=== PATIENT | female | born 1980 | race American Indian/Alaskan Native ===

== ENCOUNTER 2016-08-12 06:21 | Day surgery (SDC) | payer MEDICAID ==
[2016-08-09 11:37] VITALS: BMI 36.8
[2016-08-12 07:10] VITALS: RESP 18; O2SAT 100
--- NOTE | 2016-08-12 07:22 | CP.SDSHP ---
Same Day Surgery H & P - History Proposed Procedure: Laparoscopic Bilateral Tubal Ligation Pre-Op Diagnosis: Multiparity, Sterilization - Allergies Allergies: Allergies No Known Allergies Allergy (Verified 09/17/11 13:13) - Physical Exam Vital Signs: Vital Signs 08/12/16 06:30 Temperature 97.8 F Pulse Rate 57 L Respiratory 18 Rate Blood Pressure 138/87 O2 Sat by Pulse 100 Oximetry Heart: WNL Lungs: WNL GI: WNL - {Optional Preform as Required} FLIGHT PHYSICIAN: WNL Other Pertinent Findings: 35 year old Para6 desires permanent sterilization - Impression Pt. Evaluated Today:Candidate for Anesthesia & Procedure: Yes - Date & Time Date: 08/12/16 Time: 07:21 Short Stay Discharge - Short Stay Discharge Admitting Diagnosis/Reason for Visit: STERILIZATION Disposition: HOME/ ROUTINE
[2016-08-12] MEDS ORDERED: Propofol 10 mg/ml Inj (20 ML) ONE (07:50)
[2016-08-12] MEDS ORDERED: Midazolam 2 MG/2 ML VIAL ONE (07:50)
[2016-08-12] MEDS ORDERED: Rocuronium 10 mg/ml (5 ml) ONE (07:51)
[2016-08-12] MEDS ORDERED: Lidocaine Hydrochloride 5 ML INJ ONE (07:51)
[2016-08-12] MEDS ORDERED: Neostigmine Methylsulfate 3mg/3ml Syringe IV ONE (08:39)
[2016-08-12] MEDS ORDERED: Oxycodone/Acetaminophen 5/325 mg Tab PO PRN (08:48)
[2016-08-12] MEDS: HYDROmorphone 0.5 mg/0.5 ml ISec IVP PRN ×2 (09:15→10:30)
[2016-08-12] MEDS ORDERED: HYDROmorphone 0.5 mg/0.5 ml ISec ONE (09:15)
--- NOTE | 2016-08-12 09:23 | PCM.SURG1 ---
Surgeon's Initial Post Op Note - Surgeon's Notes Surgeon: Basilio Police Guard: None Type of Anesthesia: General Endo Pre-Operative Diagnosis: Multiparity, Sterilization Operative Findings: Normal uterus, ovaries and Fallopian tubes Post-Operative Diagnosis: Multiparity, Sterilization Operation Performed: Laparoscopic Bilateral Tubal Ligation Using Ligasure Specimen/Specimens Removed: None Estimated Blood Loss: EBL {In ML}: 1 Blood Products Given: N/A Drains Used: No Drains Post-Op Condition: Good Date of Surgery/Procedure: 08/12/16 Time of Surgery/Procedure: 08:40
[2016-08-12] MEDS ORDERED: Lactated Ringer's 500 ML IV ONE (10:00)
[2016-08-12 11:44] VITALS: BP 105/70; PULSE 63; TEMP 97.1
--- NOTE | 2016-08-13 09:32 | OP ---
PROCEDURE DATE: 08/12/2016 PREOPERATIVE DIAGNOSES: Multiparity, sterilization. POSTOPERATIVE DIAGNOSES: Multiparity, sterilization. PROCEDURE: Laparoscopic bilateral tubal ligation using the LigaSure. SURGEON: Dr. Richmond. METAL BUGGY OPERATOR: None. ANESTHESIA: General, given by Dr. Lou. FINDINGS: Normal uterus. Normal ovaries. Normal fallopian tubes. DESCRIPTION OF PROCEDURE: Under adequate general anesthesia, the patient was placed in the lithotomy position. The abdomen, perineum, and vagina were prepped and draped in the usual sterile fashion. A Mahoney catheter was inserted into the bladder for continuous bladder drainage. The cervix was then exposed using a bivalved speculum. The anterior lip of the cervix was grasped with a single tooth tenaculum. The uterus was sounded to 8 cm. A HUMI manipulator was then inserted into the uterus and insufflated with air. The speculum and tenaculum were then removed. Attention was turned to the abdomen. A 5 mm incision was made in the umbilicus. A Veress needle was inserted into the abdomen through the incision and pneumoperitoneum was created. A 5 mm trocar and cannula were then inserted through the umbilical incision into the abdominal cavity. The abdomen was then inspected. Another 5 mm incision was made above the symphysis pubis in the midline. A 5 mm trocar and cannula were then inserted into the abdomen under laparoscopic guidance. Using the LigaSure , first the right fallopian tube was identified and followed to the fimbriated end. The midsegment was coagulated and transected. The same procedure was repeated on the left fallopian tube. Hemostasis was achieved. EBL 2ml. The pneumoperitoneum was then evacuated. The cannulas were removed. The patient tolerated the procedure very well. The skin incisions were then approximated with 3-0 plain catgut. The HUMI and Mahoney catheter were removed in the operating room. The patient was extubated in the operating room and transferred to the recovery room in good condition. James Richmond MD cc: [id number] TT: 08/13/2016 09:32:18 michaelle LAGUNA
== END 2016-08-12 12:30 | disposition home or self-care (01) ==
LOC: C.SDS 06:21
PROVIDERS: ATTEND Obstetrics & Gynecology
DX: Z30.2 Encounter for sterilization (principal)

== ENCOUNTER 2018-08-04 15:21 | Emergency (ER) | payer MEDICAID ==
[2018-08-04 15:30] VITALS: BMI 36.0
--- NOTE | 2018-08-04 16:28 | C.PDOC ---
History Of Present Illness 37 y/o F c PMHx asthma p/w cough x 2 days. Reports green sputum, now turning clear. States with cough, thorax hurts. 2 sick children at home. Denies recent travel, hemoptysis, previous PE/DVT, OCPs, leg edema, surgery or trauma in pr eceding 2 months. Time Seen by Provider: 08/04/18 16:22 Chief Complaint (Nursing): Shortness Of Breath Past Medical History Vital Signs: Last Vital Signs Temp 99.7 F H 08/04/18 15:30 Pulse 97 H 08/04/18 15:30 Resp 18 08/04/18 15:30 BP 145/90 08/04/18 15:30 Pulse Ox 100 08/04/18 15:30 - Medical History PMH: Asthma Denies: Depression, Chronic Kidney Disease Surgical History: Endoscopy - [facility] Procedures DELIVERY OF PRODUCTS OF CONCEPTION, EXTERNAL APPROACH (06/27/16) MONITORING NOS (10/23/13) INJECT RH IMMUNE GLOBUL (10/23/13) MANUAL ASSIST DELIV NEC (10/23/13) PACKED CELL TRANSFUSION (10/23/13) Family History: States: No Known Family Hx - Social History Hx Tobacco Use: Yes Hx Alcohol Use: No (socially) Hx Substance Use: No Review Of Systems Except As Marked, All Systems Reviewed And Found Negative. Constitutional: Negative for: Fever Gastrointestinal: Negative for: Vomiting Physical Exam - Physical Exam Additional Physical Exam Comments: Constitutional: No acute distress. Head: Normocephalic. Atraumatic. Eyes: PERRL. ENT: Moist mucous membranes. Neck: Supple. Cardiovascular: Regular rate. Radial pulse 2+ bilaterally. Chest: Reproducible enderness. Respiratory: Clear to auscultation bilaterally. GI: Soft. Nontender. Nondistended. Back: Reproducible tenderness to upper back. Musculoskeletal: No tenderness or swelling of extremities. Skin: No rash. Neurologic: Alert, no focal deficit. ED Course And Treatment - Laboratory Results Result Diagrams: 08/04/18 16:48 08/04/18 16:48 O2 Sat by Pulse Oximetry: 100 Medical Decision Making Medical Decision Making: PERC negative. CXR no pneumonia. Duonebs and solumedrol administered, toradol for body aches. Influenza negative. Will discharge, f/u PMD, return to ED for worsening breathing, pain, lethargy, or any other problem. Disposition - Disposition Disposition: HOME/ ROUTINE Disposition Time: 18:07 Condition: GOOD Prescriptions: Guaifenesin/Dextromethorphan [Mucinex Dm ER 1,200-60 mg Tab] 1 each PO Q12H #18 tab.er.12h Prednisone [Deltasone] 3 tab PO DAILY #12 tablet Instructions: Viral Upper Respiratory Infection, Adult (DC) Forms: [employer] (Ivorian) - Clinical Impression Clinical Impression: URI (upper respiratory infection)
[2018-08-04] MEDS ORDERED: MethylPREDNISolone 40 mg Vial IVP STA (16:31)
[2018-08-04] MEDS ORDERED: Albuterol-Ipratrop 3 mg / 0.5 (3 ml) UD IH STA ×3 (16:31→16:33)
[2018-08-04] MEDS ORDERED: Albuterol-Ipratrop 3 mg / 0.5 (3 ml) UD ONE (16:50)
[2018-08-04 16:55] LABS: BASO % 0.1 % (0.0-2.0); EOS % 0.3 % (0.0-4.0); HEMOGLOBIN 10.4 g/dL (11.0-16.0); LYMPH # 1.1 K/uL (1.0-4.3); LYMPH % 8.6 % (20.0-40.0); MEAN CORPUSCULAR HEMOGLOBIN 26.7 pg (27.0-31.0); MEAN CORPUSCULAR HGB CONC 31.8 g/dL (33.0-37.0); MEAN PLATELET VOLUME 10.4 fL (7.2-11.7); MONO % 7.9 % (0.0-10.0); NEUT # 10.4 K/uL (1.8-7.0); NEUT % 83.1 % (50.0-75.0); PLATELET COUNT 234 K/uL (130-400); RBC 3.88 Mil/uL (3.80-5.20); RED CELL DISTRIBUTION WIDTH 16.7 % (11.5-14.5)
[2018-08-04 17:04] LABS: WHITE BLOOD COUNT 12.6 K/uL (4.8-10.8)
--- NOTE | 2018-08-04 17:23 | RAD ---
Date of service: 08/04/2018 HISTORY: cough COMPARISON: No prior. TECHNIQUE: Chest PA and lateral views FINDINGS: LUNGS: No active pulmonary disease. PLEURA: No significant pleural effusion identified. No pneumothorax apparent. CARDIOVASCULAR: No aortic atherosclerotic calcification present. Normal cardiac size. No pulmonary vascular congestion. OSSEOUS STRUCTURES: No significant abnormalities. VISUALIZED UPPER ABDOMEN: Normal. OTHER FINDINGS: None. IMPRESSION: No active disease.
[2018-08-04 17:33] LABS: ALB/GLOB RATIO 1.2 (1.0-2.1); ALBUMIN 3.8 g/dL (3.5-5.0); AST/SGOT 14 U/L (14-36); BLOOD UREA NITROGEN 9 mg/dL (7-17); CALCIUM 9.2 mg/dl (8.6-10.4); GFR NON-AFRICAN AMERICAN > 60
[2018-08-04 17:37] LABS: ALT/SGPT < 6 U/L (9-52)
[2018-08-04 17:40] VITALS: BP 159/75; PULSE 86; RESP 18; TEMP 100.1
[2018-08-04] MEDS ORDERED: Potassium Chloride 20 mEq ER Tab PO STA (18:06)
[2018-08-04 18:08] VITALS: O2SAT 100
[2018-08-04] MEDS ORDERED: Potassium Chloride 20 mEq ER Tab PO ONE (18:26)
[2018-08-04 18:27] LABS: LYMPHOCYTE 2 % (20-40); MONOCYTE 7 % (0-10); NEUTROPHIL 91 % (50-75); TOTAL CELLS COUNTED 100
[2018-08-04 18:28] LABS: ANISOCYTOSIS SLIGHT; HYPOCHROMIC SLIGHT; PLATELET ESTIMATE NORMAL (NORMAL); POLYCHROMIC SLIGHT
--- NOTE | 2018-08-08 15:40 | CARD ---
APPROVED REPORT Date of service: 08/04/2018 EKG Measurement Heart [id number] <Conclusion> Normal sinus rhythm Normal ECG
== END 2018-08-04 18:29 | disposition home or self-care (01) ==
LOC: C.ER 15:21
DX: J06.9 Acute upper respiratory infection, unspecified (principal)
CPT/HCPCS: 71046; 80053; 85025; 87804; 93005; 94640; 96374; 96375; 99284; J1885; J2920